=== PATIENT | female | born 1955 | race Caucasian/White ===

== ENCOUNTER 2023-09-05 13:47 | Inpatient (IN) | payer OTHER ==
[~2023-09-05] VITALS: Ht 165.1 cm; Wt 90.7 kg
[2023-09-05] VITALS (7 sets, daily range): BP systolic 121–134; BP diastolic 33–88; PULSE 60–75; RESP 20–24; TEMP 98; O2SAT 91–96
[~2023-09-05 13:47] MED LIST: ABI10 PO; ALEN70TA PO; ASPI-1822 PO; ATEN25TA7 PO; BACL10TA4 PO; CALC500T2 PO; CHOL500021 PO; COL250 PO; DONE10TA10 PO; FOLI1TAB19 PO; MAA30 PO; MVII IV; [UNRECOGNIZED DRUG - CODE] OP
[2023-09-05] MEDS ORDERED: ALBUTEROL SULFATE/IPRATROPIU 3 ML SOL IH ONE ×2 (14:20→15:24)
[2023-09-05] MEDS ORDERED: FUROSEMIDE 40 MG/4 ML VIAL IVP ONE (14:25)
[2023-09-05] MEDS ORDERED: PIPERACILLIN/TAZOBACTAM 3.375 GM in DEXTROSE 5% 50 ML IV ONE (14:45)
[2023-09-05] MEDS ORDERED: VANCOMYCIN 1,000 MG in DEXTROSE 5% 250 ML IV ONE (14:45)
[2023-09-05 14:52] LABS: BASOPHILS % (AUTO) 0.4 % (0.0-2.0); EOSINOPHILS # (AUTO) 0.2 K/uL (0-0.4); EOSINOPHILS % (AUTO) 1.4 % (0.0-4.0); HEMATOCRIT 39.4 % (36-48); LYMPHOCYTES # (AUTO) 1.5 K/uL (2.5-16.5); LYMPHOCYTES % (AUTO) 11.1 % (20.5-51.1); MEAN CORPUSCULAR HEMOGLOBIN 29 pg (27-31); MEAN CORPUSCULAR HGB CONC 33 g/dL (33-37); MEAN CORPUSCULAR VOLUME 88.4 fL (80-94); MONOCYTES % (AUTO) 7.2 % (1.7-9.3); NEUTROPHILS # (AUTO) 10.6 K/uL (1.8-7.7); NEUTROPHILS % (AUTO) 79.9 % (42.2-75.2); PLATELET COUNT (AUTO) 408 K/uL (140-450); RED BLOOD CELL COUNT(AUTO) 4.46 MIL/uL (4.20-5.40); RED CELL DISTRIBUTION WIDTH 15.7 % (11.6-13.7); WHITE BLOOD COUNT (AUTO) 13.2 K/uL (4.8-10.8)
[2023-09-05] MEDS ORDERED: VANCOMYCIN 1,000 MG VIAL ONE ×2 (14:53→16:25)
[2023-09-05] MEDS ORDERED: PIPERACILLIN/TAZOBACTAM 3.375 GM VIAL IV ONE (14:53)
[2023-09-05 15:14] LABS: ALANINE AMINOTRANSFERASE 10 U/L (12-78); ALBUMIN 1.8 g/dL (3.4-5.0); ALKALINE PHOSPHATASE 63 U/L (50-136); ASPARTATE AMINOTRANSFERASE 15 U/L (15-37); BILIRUBIN,DIRECT 0.1 mg/dL (0.0-0.3); CREATINE KINASE, TOTAL 29 U/L (26-192); TOTAL BILIRUBIN 0.3 mg/dL (0.0-1.0); TOTAL PROTEIN, SERUM 8.6 g/dL (6.4-8.2)
[2023-09-05 15:16] LABS: LACTIC ACID 1.7 mmol/L (0.4-2.0)
[2023-09-05 15:19] LABS: INR 1.19 (0.8-1.2); PARTIAL THROMBOPLASTIN TIME 25.9 secs (22-35.6); PROTHROMBIN TIME 12.4 secs (10.8-13.4)
[2023-09-05 15:23] LABS: ANION GAP 5.6 (8-16); CALCIUM 9.3 mg/dL (8.5-10.1); CREATININE 0.5 mg/dL (0.6-1.3); POTASSIUM 4.4 mmol/L (3.5-5.1)
[2023-09-05 15:25] LABS: CARBON DIOXIDE 40.8 mmol/L (21-32)
[2023-09-05 15:36] LABS: FLU A ANTIGEN negative (NEGATIVE); FLU B ANTIGEN NEGATIVE (NEGATIVE)
[2023-09-05 16:08] LABS: APPEARANCE,URINE CLEAR (CLEAR); BILIRUBIN,URINE NEGATIVE (NEGATIVE); BLOOD, URINE TRACE-I (NEGATIVE); COLOR,URINE YELLOW (YELLOW); LEUKOCYTE ESTERASE ,URINE NEGATIVE (NEGATIVE); NITRITE, URINE NEGATIVE (NEGATIVE); PROTEIN,URINE NEGATIVE (NEGATIVE); UGLUCOSE NEGATIVE (NEGATIVE); UROBILINOGEN,URINE 0.2 EU/dL (0.2 - 1)
[2023-09-05] MEDS ORDERED: HYDROcodone/APAP 5/325 MG 1 TAB TAB PO PRN (16:30)
[2023-09-05] MEDS ORDERED: LORazepam 1 MG TAB PO PRN (16:30)
[2023-09-05] MEDS ORDERED: ONDANSETRON 4 MG/2 ML VIAL IVP PRN (16:30)
[2023-09-05] MEDS ORDERED: ACETAMINOPHEN 325 MG TAB PO PRN (16:30)
[2023-09-05] MEDS ORDERED: ZOLPIDEM 5 MG TAB PO PRN (16:30)
[2023-09-05 16:32] LABS: BLOOD GAS BASE EXCESS 10.6 mmol/L (-2.0-2.0); BLOOD GAS HCO3 40.7 mmol/L (22-26); BLOOD GAS PCO2 85.1 mmHg (35-45); BLOOD GAS PH 7.297 (7.35-7.45); BLOOD GAS PO2 63.1 mmHg (75-100)
[2023-09-05 16:33] LABS: BLOOD GAS O2 SAT% 91.1 % (92.0-98.5)
[2023-09-05] MEDS ORDERED: DIVA500T1 PO (16:35)
[2023-09-05] MEDS ORDERED: CALC-1490 PO (16:35)
[2023-09-05] MEDS ORDERED: GLYC30DR3 OP (16:35)
[2023-09-05] MEDS ORDERED: MULT-2611 PO (16:35)
[2023-09-05] MEDS ORDERED: ZINC220C29 PO (16:35)
[2023-09-05] MEDS ORDERED: ARIP30TA1 PO (16:35)
[2023-09-05] MEDS ORDERED: VANCOMYCIN PER PHARMACY MC PRN (16:35)
[2023-09-05] MEDS ORDERED: NUTR887L PO (16:35)
[2023-09-05] MEDS ORDERED: DOCU-299 PO (16:35)
[2023-09-05] MEDS ORDERED: BACL10TA4 PO (16:35)
[2023-09-05] MEDS ORDERED: hydrALAZINE 20 MG/ML VIAL IVP PRN (16:45)
[2023-09-05] MEDS: methylPREDNISolone SS 40 MG/ML VIAL IVP SCH (20:27)
[2023-09-05] MEDS: DONEPEZIL 10 MG TAB PO SCH (20:28)
[2023-09-05] MEDS: DIVALPROEX 500 MG TABEC PO SCH (20:28)
[2023-09-05] MEDS: PIPERACILLIN/TAZOBACTAM 4.5 GM in DEXTROSE 5% 100 ML IV SCH (23:18)
[2023-09-06] VITALS (13 sets, daily range): BP systolic 120–163; BP diastolic 38–76; PULSE 54–85; RESP 16–24; TEMP 96.6–97.6; O2SAT 91–97
[2023-09-06] MEDS: VANCOMYCIN 1,000 MG in DEXTROSE 5% 250 ML IV SCH ×2 (02:20→15:36)
[2023-09-06] MEDS: methylPREDNISolone SS 40 MG/ML VIAL IVP SCH ×3 (04:37→20:48)
[2023-09-06] MEDS: PIPERACILLIN/TAZOBACTAM 4.5 GM in DEXTROSE 5% 100 ML IV SCH ×4 (05:14→23:55)
[2023-09-06 05:27] LABS: BASOPHILS % (AUTO) 0.1 % (0.0-2.0); EOSINOPHILS % (AUTO) 0.1 % (0.0-4.0); HEMATOCRIT 37.8 % (36-48); HEMOGLOBIN 12.5 g/dL (12.0-16.0); LYMPHOCYTES # (AUTO) 0.9 K/uL (2.5-16.5); MEAN CORPUSCULAR HEMOGLOBIN 29 pg (27-31); MEAN CORPUSCULAR HGB CONC 33 g/dL (33-37); MEAN CORPUSCULAR VOLUME 88.3 fL (80-94); MONOCYTES # (AUTO) 0.3 K/uL (0.8-1.0); MONOCYTES % (AUTO) 1.5 % (1.7-9.3); NEUTROPHILS % (AUTO) 94.3 % (42.2-75.2); PLATELET COUNT (AUTO) 382 K/uL (140-450); RED BLOOD CELL COUNT(AUTO) 4.28 MIL/uL (4.20-5.40); RED CELL DISTRIBUTION WIDTH 15.4 % (11.6-13.7); WHITE BLOOD COUNT (AUTO) 22.2 K/uL (4.8-10.8)
[2023-09-06] MEDS: ALBUTEROL SULFATE/IPRATROPIU 3 ML SOL IH PRN ×2 (07:57→13:25)
[2023-09-06 08:00] LABS: ANION GAP 3.1 (8-16); CALCIUM 9.1 mg/dL (8.5-10.1); CREATININE 0.6 mg/dL (0.6-1.3); POTASSIUM 4.2 mmol/L (3.5-5.1)
[2023-09-06 08:47] LABS: CARBON DIOXIDE 44.1 mmol/L (21-32)
[2023-09-06] MEDS: DOCUSATE SODIUM 100 MG GELCAP PO SCH (09:00)
[2023-09-06] MEDS: atenoloL 25 MG TAB PO SCH (09:00)
[2023-09-06] MEDS: DIVALPROEX 500 MG TABEC PO SCH ×2 (09:00→20:56)
[2023-09-06] MEDS: ASPIRIN 81 MG TAB.CHEW PO SCH (09:00)
[2023-09-06] MEDS: ARIPiprazole 10 MG TAB PO SCH (09:00)
[2023-09-06] MEDS: BACLOFEN 10 MG TAB PO SCH (09:00)
[2023-09-06] MEDS: ZINC SULF 220 MG CAP PO SCH (09:00)
[2023-09-06 14:29] LABS: BLOOD GAS PH 7.435 (7.35-7.45)
[2023-09-06 14:31] LABS: BLOOD GAS BASE EXCESS 17.4 mmol/L (-2.0-2.0); BLOOD GAS HCO3 45.3 mmol/L (22-26); BLOOD GAS PO2 54.5 mmHg (75-100)
[2023-09-06 14:33] LABS: BLOOD GAS O2 SAT% 90.2 % (92.0-98.5)
[2023-09-06] MEDS: DEXT 5% / NACL 0.45% 1,000 ML IV SCH (18:45)
[2023-09-06] MEDS: ALBUTEROL SULFATE/IPRATROPIU 3 ML SOL IH SCH (20:38)
[2023-09-06] MEDS: DONEPEZIL 10 MG TAB PO SCH (20:55)
[2023-09-07] VITALS (13 sets, daily range): BP systolic 108–141; BP diastolic 39–91; PULSE 52–86; RESP 16–31; TEMP 96–97.3; O2SAT 92–99
[2023-09-07] MEDS: ALBUTEROL SULFATE/IPRATROPIU 3 ML SOL IH SCH ×4 (00:02→19:35)
[2023-09-07] MEDS: VANCOMYCIN 1,000 MG in DEXTROSE 5% 250 ML IV SCH ×2 (03:18→15:28)
[2023-09-07] MEDS: PIPERACILLIN/TAZOBACTAM 4.5 GM in DEXTROSE 5% 100 ML IV SCH ×4 (05:23→23:38)
[2023-09-07] MEDS: methylPREDNISolone SS 40 MG/ML VIAL IVP SCH ×3 (05:23→20:49)
[2023-09-07 05:34] LABS: BASOPHILS # (AUTO) 0.1 K/uL (0.00-0.22); BASOPHILS % (AUTO) 0.7 % (0.0-2.0); HEMATOCRIT 36.2 % (36-48); LYMPHOCYTES # (AUTO) 0.5 K/uL (2.5-16.5); LYMPHOCYTES % (AUTO) 3.7 % (20.5-51.1); MEAN CORPUSCULAR HEMOGLOBIN 29 pg (27-31); MEAN CORPUSCULAR HGB CONC 33 g/dL (33-37); MEAN CORPUSCULAR VOLUME 87.1 fL (80-94); MONOCYTES # (AUTO) 0.4 K/uL (0.8-1.0); MONOCYTES % (AUTO) 2.7 % (1.7-9.3); NEUTROPHILS # (AUTO) 12.9 K/uL (1.8-7.7); NEUTROPHILS % (AUTO) 92.9 % (42.2-75.2); PLATELET COUNT (AUTO) 380 K/uL (140-450); RED BLOOD CELL COUNT(AUTO) 4.16 MIL/uL (4.20-5.40); RED CELL DISTRIBUTION WIDTH 15.3 % (11.6-13.7); WHITE BLOOD COUNT (AUTO) 13.9 K/uL (4.8-10.8)
[2023-09-07 06:12] LABS: ANION GAP 4.4 (8-16); CALCIUM 8.8 mg/dL (8.5-10.1); CREATININE 0.5 mg/dL (0.6-1.3); POTASSIUM 3.9 mmol/L (3.5-5.1)
[2023-09-07 06:26] LABS: CARBON DIOXIDE 42.5 mmol/L (21-32)
[2023-09-07] MEDS: ASPIRIN 81 MG TAB.CHEW PO SCH (09:00)
[2023-09-07] MEDS: DOCUSATE SODIUM 100 MG GELCAP PO SCH (09:00)
[2023-09-07] MEDS: DIVALPROEX 500 MG TABEC PO SCH ×2 (09:00→20:51)
[2023-09-07] MEDS: atenoloL 25 MG TAB PO SCH (09:00)
[2023-09-07] MEDS: BACLOFEN 10 MG TAB PO SCH (09:00)
[2023-09-07] MEDS: ZINC SULF 220 MG CAP PO SCH (09:00)
[2023-09-07] MEDS: ARIPiprazole 10 MG TAB PO SCH (09:00)
[2023-09-07] MEDS: ENOXAPARIN 60 MG/0.6 ML SYR SUBQ SCH (09:16)
[2023-09-07] MEDS: PANTOPRAZOLE 40 MG INJ VIAL IVP SCH (09:22)
[2023-09-07 09:41] LABS: BLOOD GAS HCO3 42.3 mmol/L (22-26); BLOOD GAS PCO2 66.1 mmHg (35-45); BLOOD GAS PH 7.424 (7.35-7.45); BLOOD GAS PO2 66.9 mmHg (75-100)
[2023-09-07 09:42] LABS: BLOOD GAS BASE EXCESS 14.8 mmol/L (-2.0-2.0)
[2023-09-07] MEDS ORDERED: DEXTROSE 50% 50 ML SYR IVP PRN (12:30)
[2023-09-07] MEDS: DEXT 5% / NACL 0.45% 1,000 ML IV SCH (13:30)
[2023-09-07] MEDS: BLOOD GLUCOSE MONITORING 1 DEV DEV FS SCH ×2 (16:24→20:52)
[2023-09-07] MEDS: DONEPEZIL 10 MG TAB PO SCH (20:51)
[2023-09-08] VITALS (11 sets, daily range): BP systolic 104–152; BP diastolic 50–66; PULSE 64–100; RESP 18–23; TEMP 36.2; O2SAT 90–95
[2023-09-08] MEDS: ALBUTEROL SULFATE/IPRATROPIU 3 ML SOL IH SCH ×4 (01:36→20:13)
[2023-09-08] MEDS: VANCOMYCIN 1,000 MG in DEXTROSE 5% 250 ML IV SCH ×2 (03:04→15:22)
[2023-09-08] MEDS: methylPREDNISolone SS 40 MG/ML VIAL IVP SCH ×3 (05:16→22:13)
[2023-09-08] MEDS: PIPERACILLIN/TAZOBACTAM 4.5 GM in DEXTROSE 5% 100 ML IV SCH ×3 (05:16→18:00)
[2023-09-08] MEDS: INSULIN LISPRO SLIDING SCALE 100 UNITS/ML VIAL SUBQ PRN ×2 (06:26→22:40)
[2023-09-08 06:40] LABS: EOSINOPHILS % (AUTO) 0.1 % (0.0-4.0); HEMATOCRIT 35.9 % (36-48); HEMOGLOBIN 12.1 g/dL (12.0-16.0); LYMPHOCYTES # (AUTO) 0.6 K/uL (2.5-16.5); LYMPHOCYTES % (AUTO) 6.9 % (20.5-51.1); MEAN CORPUSCULAR HEMOGLOBIN 29 pg (27-31); MEAN CORPUSCULAR HGB CONC 34 g/dL (33-37); MEAN CORPUSCULAR VOLUME 86.6 fL (80-94); MONOCYTES # (AUTO) 0.5 K/uL (0.8-1.0); MONOCYTES % (AUTO) 5.3 % (1.7-9.3); NEUTROPHILS % (AUTO) 87.7 % (42.2-75.2); PLATELET COUNT (AUTO) 392 K/uL (140-450); RED BLOOD CELL COUNT(AUTO) 4.14 MIL/uL (4.20-5.40); RED CELL DISTRIBUTION WIDTH 14.9 % (11.6-13.7); WHITE BLOOD COUNT (AUTO) 9.2 K/uL (4.8-10.8)
[2023-09-08] MEDS: BLOOD GLUCOSE MONITORING 1 DEV DEV FS SCH ×4 (07:30→22:00)
[2023-09-08 07:43] LABS: CALCIUM 8.6 mg/dL (8.5-10.1); CARBON DIOXIDE 40.8 mmol/L (21-32); CREATININE 0.7 mg/dL (0.6-1.3); POTASSIUM 3.8 mmol/L (3.5-5.1)
[2023-09-08] MEDS: ARIPiprazole 10 MG TAB PO SCH (09:00)
[2023-09-08] MEDS: BACLOFEN 10 MG TAB PO SCH (09:00)
[2023-09-08] MEDS: DOCUSATE SODIUM 100 MG GELCAP PO SCH (09:00)
[2023-09-08] MEDS: ZINC SULF 220 MG CAP PO SCH (09:00)
[2023-09-08] MEDS: atenoloL 25 MG TAB PO SCH (09:00)
[2023-09-08] MEDS: ASPIRIN 81 MG TAB.CHEW PO SCH (09:00)
[2023-09-08] MEDS: DIVALPROEX 500 MG TABEC PO SCH ×2 (09:00→22:00)
[2023-09-08] MEDS: PANTOPRAZOLE 40 MG INJ VIAL IVP SCH (09:25)
[2023-09-08] MEDS: ENOXAPARIN 60 MG/0.6 ML SYR SUBQ SCH (09:26)
[2023-09-08] MEDS: DEXT 5% / NACL 0.45% 1,000 ML IV SCH (09:30)
[2023-09-08 11:34] LABS: BLOOD GAS PCO2 57.5 mmHg (35-45); BLOOD GAS PH 7.479 (7.35-7.45)
[2023-09-08 11:35] LABS: BLOOD GAS BASE EXCESS 15.5 mmol/L (-2.0-2.0); BLOOD GAS HCO3 41.8 mmol/L (22-26); BLOOD GAS O2 SAT% 87.3 % (92.0-98.5); BLOOD GAS PO2 50.8 mmHg (75-100)
[2023-09-08] MEDS: DONEPEZIL 10 MG TAB PO SCH (22:00)
[2023-09-08] MEDS: INSULIN LANTUS 100 UNITS/ML 10 ML VIAL SUBQ SCH (22:39)
[2023-09-09] MEDS: PIPERACILLIN/TAZOBACTAM 4.5 GM in DEXTROSE 5% 100 ML IV SCH ×4 (00:53→19:15)
[2023-09-09] MEDS: ALBUTEROL SULFATE/IPRATROPIU 3 ML SOL IH SCH ×4 (01:00→19:47)
[2023-09-09] MEDS: VANCOMYCIN 1,000 MG in DEXTROSE 5% 250 ML IV SCH (03:38)
[2023-09-09 04:00] VITALS: BP 146/59; PULSE 69; RESP 18; TEMP 97.7; O2SAT 96
[2023-09-09] MEDS: DEXT 5% / NACL 0.45% 1,000 ML IV SCH (05:30)
[2023-09-09] MEDS: methylPREDNISolone SS 40 MG/ML VIAL IVP SCH ×2 (06:02→13:00)
[2023-09-09 06:13] LABS: HEMATOCRIT 36.3 % (36-48); HEMOGLOBIN 12.1 g/dL (12.0-16.0); LYMPHOCYTES # (AUTO) 0.5 K/uL (2.5-16.5); LYMPHOCYTES % (AUTO) 6.3 % (20.5-51.1); MEAN CORPUSCULAR HEMOGLOBIN 29 pg (27-31); MEAN CORPUSCULAR HGB CONC 34 g/dL (33-37); MONOCYTES # (AUTO) 0.2 K/uL (0.8-1.0); NEUTROPHILS # (AUTO) 6.6 K/uL (1.8-7.7); NEUTROPHILS % (AUTO) 90.7 % (42.2-75.2); PLATELET COUNT (AUTO) 358 K/uL (140-450); RED BLOOD CELL COUNT(AUTO) 4.17 MIL/uL (4.20-5.40); WHITE BLOOD COUNT (AUTO) 7.2 K/uL (4.8-10.8)
[2023-09-09 06:29] LABS: ANION GAP 4.3 (8-16); CALCIUM 8.3 mg/dL (8.5-10.1); CREATININE 0.5 mg/dL (0.6-1.3); POTASSIUM 3.8 mmol/L (3.5-5.1)
[2023-09-09] MEDS: BLOOD GLUCOSE MONITORING 1 DEV DEV FS SCH ×3 (07:08→19:15)
[2023-09-09] MEDS: INSULIN LISPRO SLIDING SCALE 100 UNITS/ML VIAL SUBQ PRN ×2 (07:14→11:26)
[2023-09-09 07:52] LABS: CARBON DIOXIDE 40.5 mmol/L (21-32)
[2023-09-09 08:00] VITALS: BP 108/87; PULSE 82; PULSE 86; RESP 18; TEMP 98.6; TEMP 98.9; O2SAT 93
[2023-09-09 08:06] VITALS: PULSE 71; RESP 16; O2SAT 93
[2023-09-09] MEDS: DIVALPROEX 500 MG TABEC PO SCH (09:10)
[2023-09-09] MEDS: DOCUSATE SODIUM 100 MG GELCAP PO SCH (09:10)
[2023-09-09] MEDS: ZINC SULF 220 MG CAP PO SCH (09:10)
[2023-09-09] MEDS: ASPIRIN 81 MG TAB.CHEW PO SCH (09:11)
[2023-09-09] MEDS: BACLOFEN 10 MG TAB PO SCH (09:11)
[2023-09-09] MEDS: ARIPiprazole 10 MG TAB PO SCH (09:11)
[2023-09-09] MEDS: atenoloL 25 MG TAB PO SCH (09:11)
[2023-09-09] MEDS: PANTOPRAZOLE 40 MG INJ VIAL IVP SCH (09:11)
[2023-09-09] MEDS: ENOXAPARIN 60 MG/0.6 ML SYR SUBQ SCH (09:12)
[2023-09-09] MEDS: INSULIN LANTUS 100 UNITS/ML 10 ML VIAL SUBQ SCH (09:14)
[2023-09-09] MEDS ORDERED: ZOS4.5PM IV (11:56)
[2023-09-09] MEDS ORDERED: PANT40EC PO (11:56)
[2023-09-09] MEDS ORDERED: ALBU3SOL83 IH (11:56)
[2023-09-09] MEDS ORDERED: PRED20TA5 PO (11:56)
[2023-09-09] MEDS ORDERED: LORA-476 PO (11:56)
[2023-09-09] MEDS ORDERED: LANTUS SUBQ (11:56)
[2023-09-09 13:11] VITALS: PULSE 51; RESP 16; O2SAT 96
[2023-09-09 16:00] VITALS: BP 148/53; PULSE 53; RESP 18; TEMP 97.6; O2SAT 93
[2023-09-09 19:47] VITALS: PULSE 58; RESP 16; O2SAT 97
== END 2023-09-09 20:05 | DRG 871 ==
LOC: MED 13:47 → MTU 16:34
PROVIDERS: ADMIT Student in an Organized Health Care Education/Training Program; ATTEND Student in an Organized Health Care Education/Training Program
PROC: 5A09457 Assistance with Respiratory Ventilation, 24-96 Consecutive Hours, Continuous Positive Airway Pressure (ICD-10-PCS; principal; 2023-09-06)
PROC: 5A09357 Assistance with Respiratory Ventilation, Less than 24 Consecutive Hours, Continuous Positive Airway Pressure (ICD-10-PCS; 2023-09-09)
DX: A41.9 Sepsis, unspecified organism (principal); J15.9 Unspecified bacterial pneumonia; J96.22 Acute and chronic respiratory failure with hypercapnia; J96.21 Acute and chronic respiratory failure with hypoxia; G82.20 Paraplegia, unspecified; J44.0 Chronic obstructive pulmonary disease with (acute) lower respiratory infection; J44.1 Chronic obstructive pulmonary disease with (acute) exacerbation; E66.2 Morbid (severe) obesity with alveolar hypoventilation; G93.40 Encephalopathy, unspecified; F03.90 Unspecified dementia, unspecified severity, without behavioral disturbance, psychotic disturbance, mood disturbance, and anxiety; E78.5 Hyperlipidemia, unspecified; R13.10 Dysphagia, unspecified; Z66 Do not resuscitate; F31.9 Bipolar disorder, unspecified; Z20.822 Contact with and (suspected) exposure to COVID-19; M32.9 Systemic lupus erythematosus, unspecified; F20.9 Schizophrenia, unspecified; Z79.82 Long term (current) use of aspirin; Z79.899 Other long term (current) drug therapy; Z68.33 Body mass index [BMI] 33.0-33.9, adult
CPT/HCPCS: 36415; 36600; 71045; 74150; 80048; 80076; 80202; 81003; 82550; 82803; 82948; 83036; 83605; 83880; 84484; 85025; 85610; 85730; 87040; 87081; 87086; 92526; 93005; 94640; 94660; 96365; 96368; 96375; 99285; C9113; J1650; J1815; J1940; J2543; J2920; J3370; J7060

== ENCOUNTER 2023-12-15 12:37 | Inpatient (IN) | payer OTHER ==
[~2023-12-15] VITALS: Ht 165.1 cm; Wt 72.6 kg
[~2023-12-15 12:37] MED LIST changes: -ABI10 PO; +ALBU3SOL83 IH; +ARIP30TA1 PO; +CALC-1490 PO; -CALC500T2 PO; -CHOL500021 PO; -COL250 PO; +DIVA500T1 PO; +DOCU-299 PO; -FOLI1TAB19 PO; +GLYC30DR3 OP; +LANTUS SUBQ; +LORA-476 PO; -MAA30 PO; +MULT-2611 PO; -MVII IV; +NUTR887L PO; +PANT40EC PO; +PRED20TA5 PO; +ZINC220C29 PO; +ZOS4.5PM IV
[2023-12-15 12:48] VITALS: BP 104/53; PULSE 92; RESP 16; TEMP 98; O2SAT 97
[2023-12-15 14:27] LABS: BASOPHILS % (AUTO) 0.4 % (0.0-2.0); EOSINOPHILS # (AUTO) 0.2 K/uL (0-0.4); EOSINOPHILS % (AUTO) 1.7 % (0.0-4.0); HEMATOCRIT 35.3 % (36-48); LYMPHOCYTES # (AUTO) 2.3 K/uL (2.5-16.5); LYMPHOCYTES % (AUTO) 24.9 % (20.5-51.1); MEAN CORPUSCULAR HEMOGLOBIN 31 pg (27-31); MEAN CORPUSCULAR HGB CONC 34 g/dL (33-37); MEAN CORPUSCULAR VOLUME 89.9 fL (80-94); MONOCYTES # (AUTO) 0.7 K/uL (0.8-1.0); MONOCYTES % (AUTO) 7.1 % (1.7-9.3); NEUTROPHILS # (AUTO) 6.1 K/uL (1.8-7.7); NEUTROPHILS % (AUTO) 65.9 % (42.2-75.2); PLATELET COUNT (AUTO) 181 K/uL (140-450); RED BLOOD CELL COUNT(AUTO) 3.92 MIL/uL (4.20-5.40); RED CELL DISTRIBUTION WIDTH 13.7 % (11.6-13.7); WHITE BLOOD COUNT (AUTO) 9.2 K/uL (4.8-10.8)
[2023-12-15 14:37] LABS: ANION GAP 7.6 (8-16); CALCIUM 9.3 mg/dL (8.5-10.1); CARBON DIOXIDE 34.6 mmol/L (21-32); CREATININE 0.4 mg/dL (0.6-1.3); POTASSIUM 4.2 mmol/L (3.5-5.1)
[2023-12-15 15:17] LABS: APPEARANCE,URINE CLEAR (CLEAR); BILIRUBIN,URINE NEGATIVE (NEGATIVE); BLOOD, URINE NEGATIVE (NEGATIVE); COLOR,URINE YELLOW (YELLOW); LEUKOCYTE ESTERASE ,URINE 1+ (NEGATIVE); NITRITE, URINE NEGATIVE (NEGATIVE); PROTEIN,URINE NEGATIVE (NEGATIVE); UGLUCOSE NEGATIVE (NEGATIVE); UROBILINOGEN,URINE 0.2 EU/dL (0.2 - 1)
[2023-12-15] MEDS: ONDANSETRON 4 MG/2 ML VIAL IVP ONE (15:26)
[2023-12-15] MEDS: MORPHINE SULFATE 4 MG/ML SYR IVP ONE (15:27)
[2023-12-15 15:29] LABS: BACTERIA,URINE 10-30 (MOD) /HPF (None Seen); RBC,URINE 0-5 /HPF (0-5); SQUAMOUS EPITHELIAL CELL,UR 0-3 (FEW) /LPF (0-3 (FEW))
[2023-12-15] MEDS: LORazepam 2 MG/ML VIAL IVP ONE (17:04)
[2023-12-15] MEDS ORDERED: cefTRIAXone 1,000 MG VIAL ONE (17:57)
[2023-12-15] MEDS: HALOPERIDOL IM 5 MG/ML VIAL IM ONE (18:09)
[2023-12-15] MEDS ORDERED: MORPHINE SULFATE 2 MG/ML SYR IVP PRN (19:15)
[2023-12-15] MEDS ORDERED: HYDROcodone/APAP 5/325 MG 1 TAB TAB PO PRN (19:15)
[2023-12-15] MEDS ORDERED: ONDANSETRON 4 MG/2 ML VIAL IVP PRN (19:15)
[2023-12-15] MEDS ORDERED: ACETAMINOPHEN 325 MG TAB PO PRN (19:15)
[2023-12-15 19:38] VITALS: O2SAT 95
[2023-12-15] MEDS ORDERED: DIVALPROEX 500 MG TABER PO SCH (21:00)
[2023-12-15 21:41] VITALS: O2SAT 98
[2023-12-15] MEDS: DONEPEZIL 10 MG TAB PO SCH (23:53)
[2023-12-16] VITALS (7 sets, daily range): BP systolic 116–133; BP diastolic 59–92; PULSE 65–91; RESP 14–19; TEMP 97–97.7; O2SAT 96–100
[2023-12-16] MEDS ORDERED: [UNRECOGNIZED DRUG - OTHER] IV SCH
[2023-12-16] MEDS ORDERED: PIPERACILLIN IV SCH
[2023-12-16] MEDS ORDERED: PIPERACILLIN/TAZOBACTAM 4.5 GM in DEXTROSE 5% 100 ML IV SCH
[2023-12-16] MEDS ORDERED: TAZOBACTAM IV SCH
[2023-12-16] MEDS: CALCIUM CARB/VIT-D 500 MG/200 IU 1 TAB PO SCH (00:09)
[2023-12-16] MEDS ORDERED: ALBUTEROL SULFATE/IPRATROPIU 3 ML SOL IH ONE (00:32)
[2023-12-16] MEDS: POLYVINYL ALCOHOL 1.4% OP 15 ML SOL OP SCH (00:45)
[2023-12-16] MEDS: CALCIUM CARB/VIT-D 500 MG/200 IU 1 TAB ONE (00:45)
[2023-12-16] MEDS ORDERED: ALBUTEROL SULFATE/IPRATROPIU 3 ML SOL IH SCH (01:00)
[2023-12-16 06:53] LABS: BASOPHILS % (AUTO) 0.3 % (0.0-2.0); EOSINOPHILS # (AUTO) 0.2 K/uL (0-0.4); EOSINOPHILS % (AUTO) 2.5 % (0.0-4.0); HEMATOCRIT 37.1 % (36-48); HEMOGLOBIN 12.4 g/dL (12.0-16.0); LYMPHOCYTES # (AUTO) 1.8 K/uL (2.5-16.5); LYMPHOCYTES % (AUTO) 25.8 % (20.5-51.1); MEAN CORPUSCULAR HEMOGLOBIN 30 pg (27-31); MEAN CORPUSCULAR HGB CONC 34 g/dL (33-37); MEAN CORPUSCULAR VOLUME 90.3 fL (80-94); MONOCYTES # (AUTO) 0.8 K/uL (0.8-1.0); MONOCYTES % (AUTO) 11.5 % (1.7-9.3); NEUTROPHILS # (AUTO) 4.2 K/uL (1.8-7.7); NEUTROPHILS % (AUTO) 59.9 % (42.2-75.2); PLATELET COUNT (AUTO) 176 K/uL (140-450); RED CELL DISTRIBUTION WIDTH 13.5 % (11.6-13.7)
[2023-12-16 07:51] LABS: ALBUMIN 2.5 g/dL (3.4-5.0); CALCIUM 9.5 mg/dL (8.5-10.1); CARBON DIOXIDE 34.3 mmol/L (21-32); CREATININE 0.5 mg/dL (0.6-1.3); MAGNESIUM 2.2 mg/dL (1.8-2.4); POTASSIUM 4.3 mmol/L (3.5-5.1); TOTAL BILIRUBIN 0.3 mg/dL (0.0-1.0); TOTAL PROTEIN, SERUM 7.9 g/dL (6.4-8.2)
[2023-12-16] MEDS ORDERED: ENOXAPARIN 40 MG/0.4 ML SYR SUBQ SCH (09:00)
[2023-12-16] MEDS ORDERED: ZINC SULF 220 MG CAP PO SCH (09:00)
[2023-12-16] MEDS ORDERED: ASPIRIN 81 MG TAB.CHEW PO SCH (09:00)
[2023-12-16] MEDS ORDERED: ALENDRONATE SODIUM 70 MG TAB PO SCH (09:00)
[2023-12-16] MEDS ORDERED: INSULIN LANTUS 100 UNITS/ML 10 ML VIAL SUBQ SCH (09:00)
[2023-12-16] MEDS ORDERED: NON-FORMULARY ITEM (Amino Acids/Protein Hydrolys (Pro-Stat Sugar Free Liquid) 30 ML) PO SCH (09:00)
[2023-12-16] MEDS: PANTOPRAZOLE 40 MG TABEC PO SCH (09:41)
[2023-12-16] MEDS: atenoloL 25 MG TAB PO SCH (09:42)
[2023-12-16] MEDS: predniSONE 20 MG TAB PO SCH (09:42)
[2023-12-16] MEDS: ARIPiprazole 10 MG TAB PO SCH (09:43)
[2023-12-16] MEDS: DOCUSATE SODIUM 100 MG GELCAP PO SCH (09:43)
[2023-12-16] MEDS: VALPROIC ACID 250 MG/5 ML UDC PO SCH (09:44)
[2023-12-16] MEDS: BACLOFEN 10 MG TAB PO SCH (09:44)
[2023-12-16] MEDS: MULTIVITAMIN 1 TAB PO SCH (09:48)
[2023-12-16] MEDS: LORazepam 1 MG TAB PO PRN (10:16)
[2023-12-16] MEDS: CARBOXYMETHYLCELLULOSE 1% OP SCH (10:22)
[2023-12-16] MEDS: EYE OP SCH (10:22)
[2023-12-16] MEDS ORDERED: OLANZapine 5 MG TAB PO PRN (13:30)
[2023-12-16] MEDS: QUEtiapine FUMARATE 25 MG TAB PO SCH (14:52)
[2023-12-16] MEDS: OXYBUTYNIN 5 MG TAB PO SCH (14:52)
[2023-12-16] MEDS: DIVALPROEX 250 MG TABEC PO SCH (20:45)
[2023-12-16] MEDS: LORazepam 2 MG/ML VIAL IVP PRN (21:46)
[2023-12-16] MEDS: ZOLPIDEM 5 MG TAB PO PRN (23:16)
[2023-12-17 04:00] VITALS: BP 121/44; PULSE 70; RESP 19; TEMP 96; O2SAT 99
[2023-12-17 07:28] LABS: ALBUMIN 2.5 g/dL (3.4-5.0); ANION GAP 7.2 (8-16); CALCIUM 9.5 mg/dL (8.5-10.1); CARBON DIOXIDE 35.8 mmol/L (21-32); CREATININE 0.5 mg/dL (0.6-1.3); TOTAL BILIRUBIN 0.3 mg/dL (0.0-1.0); TOTAL PROTEIN, SERUM 7.8 g/dL (6.4-8.2)
[2023-12-17 07:43] LABS: BASOPHILS % (AUTO) 0.5 % (0.0-2.0); EOSINOPHILS # (AUTO) 0.1 K/uL (0-0.4); EOSINOPHILS % (AUTO) 1.6 % (0.0-4.0); HEMATOCRIT 34.8 % (36-48); HEMOGLOBIN 11.9 g/dL (12.0-16.0); LYMPHOCYTES # (AUTO) 2.4 K/uL (2.5-16.5); LYMPHOCYTES % (AUTO) 31.2 % (20.5-51.1); MEAN CORPUSCULAR HEMOGLOBIN 31 pg (27-31); MEAN CORPUSCULAR HGB CONC 34 g/dL (33-37); MEAN CORPUSCULAR VOLUME 89.3 fL (80-94); MONOCYTES # (AUTO) 0.6 K/uL (0.8-1.0); MONOCYTES % (AUTO) 7.4 % (1.7-9.3); NEUTROPHILS # (AUTO) 4.5 K/uL (1.8-7.7); NEUTROPHILS % (AUTO) 59.3 % (42.2-75.2); PLATELET COUNT (AUTO) 198 K/uL (140-450); RED BLOOD CELL COUNT(AUTO) 3.89 MIL/uL (4.20-5.40); RED CELL DISTRIBUTION WIDTH 13.6 % (11.6-13.7); WHITE BLOOD COUNT (AUTO) 7.6 K/uL (4.8-10.8)
[2023-12-17 08:00] VITALS: PULSE 78; RESP 18
[2023-12-17 08:04] VITALS: O2SAT 97
[2023-12-17 12:00] VITALS: BP 106/60; PULSE 78; RESP 18; TEMP 98.1; O2SAT 96
[2023-12-17 20:00] VITALS: BP 129/46; PULSE 65; PULSE 78; RESP 18; TEMP 96; O2SAT 95
[2023-12-17 23:53] VITALS: O2SAT 93
[2023-12-18 04:00] VITALS: BP 110/62; PULSE 70; RESP 18; TEMP 96.2; O2SAT 95
[2023-12-18 06:22] LABS: BASOPHILS % (AUTO) 0.2 % (0.0-2.0); EOSINOPHILS % (AUTO) 0.4 % (0.0-4.0); HEMATOCRIT 36.2 % (36-48); HEMOGLOBIN 12.3 g/dL (12.0-16.0); LYMPHOCYTES # (AUTO) 2.1 K/uL (2.5-16.5); LYMPHOCYTES % (AUTO) 28.4 % (20.5-51.1); MEAN CORPUSCULAR HEMOGLOBIN 31 pg (27-31); MEAN CORPUSCULAR HGB CONC 34 g/dL (33-37); MEAN CORPUSCULAR VOLUME 89.7 fL (80-94); MONOCYTES # (AUTO) 0.4 K/uL (0.8-1.0); MONOCYTES % (AUTO) 5.3 % (1.7-9.3); NEUTROPHILS # (AUTO) 4.9 K/uL (1.8-7.7); NEUTROPHILS % (AUTO) 65.7 % (42.2-75.2); PLATELET COUNT (AUTO) 187 K/uL (140-450); RED BLOOD CELL COUNT(AUTO) 4.04 MIL/uL (4.20-5.40); WHITE BLOOD COUNT (AUTO) 7.4 K/uL (4.8-10.8)
[2023-12-18 06:59] LABS: ALBUMIN 2.5 g/dL (3.4-5.0); ANION GAP 9.8 (8-16); CALCIUM 9.5 mg/dL (8.5-10.1); CARBON DIOXIDE 34.5 mmol/L (21-32); CREATININE 0.4 mg/dL (0.6-1.3); POTASSIUM 4.3 mmol/L (3.5-5.1); TOTAL BILIRUBIN 0.3 mg/dL (0.0-1.0); TOTAL PROTEIN, SERUM 7.8 g/dL (6.4-8.2)
[2023-12-18 08:00] VITALS: PULSE 64; RESP 17
[2023-12-18 12:00] VITALS: BP 143/65; PULSE 64; RESP 17; TEMP 97; O2SAT 100
[2023-12-18] MEDS: LEVOFLOXACIN 250 MG/D5 PREMIX 50 ML IV SCH (13:27)
[2023-12-18] MEDS: ALBUTEROL SULFATE/IPRATROPIU 3 ML SOL IH SCH (16:00)
[2023-12-18 19:46] VITALS: O2SAT 94
[2023-12-18 20:00] VITALS: BP 108/52; PULSE 64; PULSE 65; RESP 17; TEMP 97.2; O2SAT 96
[2023-12-19 04:00] VITALS: BP 110/52; PULSE 62; RESP 17; TEMP 97.2; O2SAT 96
[2023-12-19 05:38] LABS: BASOPHILS % (AUTO) 0.2 % (0.0-2.0); EOSINOPHILS # (AUTO) 0.1 K/uL (0-0.4); EOSINOPHILS % (AUTO) 1.4 % (0.0-4.0); HEMATOCRIT 34.5 % (36-48); HEMOGLOBIN 11.7 g/dL (12.0-16.0); LYMPHOCYTES # (AUTO) 2.9 K/uL (2.5-16.5); LYMPHOCYTES % (AUTO) 37.9 % (20.5-51.1); MEAN CORPUSCULAR HEMOGLOBIN 31 pg (27-31); MEAN CORPUSCULAR HGB CONC 34 g/dL (33-37); MEAN CORPUSCULAR VOLUME 90.1 fL (80-94); MONOCYTES # (AUTO) 0.5 K/uL (0.8-1.0); MONOCYTES % (AUTO) 7.1 % (1.7-9.3); NEUTROPHILS % (AUTO) 53.4 % (42.2-75.2); PLATELET COUNT (AUTO) 193 K/uL (140-450); RED BLOOD CELL COUNT(AUTO) 3.83 MIL/uL (4.20-5.40); RED CELL DISTRIBUTION WIDTH 13.5 % (11.6-13.7); WHITE BLOOD COUNT (AUTO) 7.6 K/uL (4.8-10.8)
[2023-12-19 07:31] VITALS: PULSE 60; RESP 20; O2SAT 98
[2023-12-19 07:53] LABS: ALBUMIN 2.3 g/dL (3.4-5.0); ANION GAP 7.8 (8-16); CALCIUM 8.6 mg/dL (8.5-10.1); CARBON DIOXIDE 33.3 mmol/L (21-32); CREATININE 0.5 mg/dL (0.6-1.3); POTASSIUM 4.1 mmol/L (3.5-5.1); TOTAL BILIRUBIN 0.2 mg/dL (0.0-1.0); TOTAL PROTEIN, SERUM 7.1 g/dL (6.4-8.2)
[2023-12-19 08:00] VITALS: BP 145/40; PULSE 66; RESP 19; TEMP 97; O2SAT 94; O2SAT 97
[2023-12-19] MEDS: CEFEPIME 1,000 MG in DEXTROSE 5% 50 ML IV SCH (12:01)
[2023-12-19] MEDS: guaiFENesin 600 MG TABER PO SCH (12:04)
[2023-12-19 12:05] VITALS: PULSE 55; RESP 22; O2SAT 97
[2023-12-19] MEDS: guaiFENesin 600 MG TABER PO ONE (12:13)
[2023-12-19] MEDS ORDERED: LEVO-481 PO (13:07)
[2023-12-19] MEDS: LEVOFLOXACIN 250 MG/D5 PREMIX 50 ML IV ONE (13:29)
[2023-12-19 16:11] VITALS: PULSE 60; RESP 20; O2SAT 96
[2023-12-19] MEDS ORDERED: guaiFENesin 600 MG TABER PO SCH (21:00)
== END 2023-12-19 16:55 | DRG 71 ==
LOC: MED 12:37 → MMU 19:34 → MTU 19:34
PROVIDERS: ADMIT Internal Medicine; ATTEND Internal Medicine
DX: G93.41 Metabolic encephalopathy (principal); N17.9 Acute kidney failure, unspecified; N39.0 Urinary tract infection, site not specified; N93.9 Abnormal uterine and vaginal bleeding, unspecified; E11.9 Type 2 diabetes mellitus without complications; F03.90 Unspecified dementia, unspecified severity, without behavioral disturbance, psychotic disturbance, mood disturbance, and anxiety; I11.0 Hypertensive heart disease with heart failure; I50.9 Heart failure, unspecified; Z79.4 Long term (current) use of insulin; Z79.82 Long term (current) use of aspirin; Z79.51 Long term (current) use of inhaled steroids
CPT/HCPCS: 36415; 71045; 76856; 80048; 80053; 81001; 83735; 85025; 87081; 87086; 87186; 94640; 96365; 96372; 96375; 97163-GP; 97530; 99285; J0692; J0696; J1630; J1815; J1956; J2060; J2270; J2405; J2543; J7060; J7512; Q0092; Q9967